=== PATIENT | female | born 1960 | race Hispanic/Latino ===

== ENCOUNTER 2017-01-28 10:24 | Day surgery (SDC) | payer MEDICARE, OTHER ==
[2017-01-28] MEDS ORDERED: Propofol 10 mg/ml Inj (20 ML) ONE ×2 (12:39→12:48)
--- NOTE | 2017-01-28 12:40 | CP.SDSHP ---
Same Day Surgery H & P - History Proposed Procedure: Colonoscopy Pre-Op Diagnosis: Screening colonoscopy - Previous Medical/Surgical History Neuro: Seizure Disorder Pain: 0. No Pain - Allergies Allergies: Allergies No Known Allergies Allergy (Verified 01/28/17 11:25) - Current Medications Current Medications: see MAR - Physical Exam General Appearance: WN/WD Vital Signs: Vital Signs 01/28/17 11:10 Temperature 97.3 F L Pulse Rate 74 Respiratory 16 Rate Blood Pressure 146/98 H O2 Sat by Pulse 98 Oximetry Mental Status: Alert & Oriented x3 Neuro: WNL Heart: WNL Lungs: WNL GI: WNL - {Optional Preform as Required} Abdomen: WNL - Impression Impression: Proceed with colonoscopy Pt. Evaluated Today:Candidate for Anesthesia & Procedure: Yes - Date & Time Date: 01/28/17 Time: 12:30 Short Stay Discharge - Short Stay Discharge Admitting Diagnosis/Reason for Visit: SCREENING Disposition: HOME/ ROUTINE Referrals: Rhonda Shay DO [Primary Care Provider] -
[2017-01-28] MEDS ORDERED: Lactated Ringer's 1,000 ML IV ONE (12:50)
[2017-01-28 13:26] VITALS: TEMP 97.5
[2017-01-28 14:02] VITALS: RESP 12; O2SAT 100
[2017-01-28 14:35] VITALS: BP 136/88; PULSE 65
== END 2017-01-28 14:30 | disposition home or self-care (01) ==
LOC: C.ENDO 10:24
PROVIDERS: ATTEND Internal Medicine Gastroenterology
DX: K64.8 Other hemorrhoids (principal)
CPT/HCPCS: 45378; J2704; J7120